=== PATIENT | male | born 1965 | race Caucasian/White ===

== ENCOUNTER 2017-09-06 09:23 | Emergency (ER) | payer OTHER ==
[2017-09-06 09:30] VITALS: BP 139/79; PULSE 74; RESP 18; TEMP 98.1; O2SAT 97
--- NOTE | 2017-09-06 09:49 | C.PDOC ---
History Of Present Illness 52 yo male, presents for evaluation of left 5th digit pain x 3 days after patient accidentally forced dorsiflexed his left 5th digit. He denies any othe rinjury or trauma, weakness, numbness or tingling to his left hand. No other complaint.s Time Seen by Provider: 09/06/17 09:29 Chief Complaint (Nursing): Finger,Hand,&Wrist History Per: Patient History/Exam Limitations: no limitations Onset/Duration Of Symptoms: Days (3) Current Symptoms Are (Timing): Still Present Quality: "Pain" Additional History Per: Patient Past Medical History Reviewed: Historical Data, Nursing Documentation, Vital Signs Vital Signs: Last Vital Signs Temp 98.1 F 09/06/17 09:28 Pulse 74 09/06/17 09:28 Resp 18 09/06/17 09:28 BP 139/79 09/06/17 09:28 Pulse Ox 97 09/06/17 09:49 - Medical History PMH: No Chronic Diseases Surgical History: No Surg Hx Family History: States: No Known Family Hx - Social History Hx Tobacco Use: No Hx Alcohol Use: Yes Hx Substance Use: No - Immunization History Hx Tetanus Toxoid Vaccination: Yes Hx Influenza Vaccination: No Hx Pneumococcal Vaccination: No Review Of Systems Except As Marked, All Systems Reviewed And Found Negative. Musculoskeletal: Positive for: Hand Pain (left 5th digit pain) Neurological: Negative for: Weakness, Numbness Physical Exam - Physical Exam Appears: Non-toxic Eye(s): bilateral: Normal Inspection Neck: Supple Chest: Symmetrical Cardiovascular: Rhythm Regular Respiratory: Normal Breath Sounds Extremity: Normal ROM (normal flexion/extension of left 5th digit), No Tenderness, No Deformity, No Swelling Neurological/Psych: Oriented x3 ED Course And Treatment O2 Sat by Pulse Oximetry: 97 (RA) Pulse Ox Interpretation: Normal - Other Rad L 5th finger X-Ray: Interpreted by Me (no fx/disloc L 5th finger) Progress Note: motrin/ice pack Reevaluation Time: 09:48 Reassessment Condition: Improved Medical Decision Making Medical Decision Making: sprain L 5th MCP Disposition Doctor Will See Patient In The: Office Counseled Patient/Family Regarding: Studies Performed, Diagnosis - Disposition Referrals: [facility] [Outside] [facility] [Outside] [facility] [Outside] Jonah Hopson MD [Staff Provider] - Disposition: HOME/ ROUTINE Disposition Time: 09:49 Condition: GOOD Additional Instructions: keep 5th finger maria esther-taped to 4th finger for about 1 week Motrin 400-600 mg every 6 hours as needed ice packs 1/2 hour per hour as needed. normal work routine Follow-up in our outpatient Clinic or w Dr Hopson as needed. Instructions: Finger Sprain (DC) Forms: [employer] ([place]) - Clinical Impression Clinical Impression: Finger sprain - Scribe Statement The provider has reviewed the documentation as recorded by the Scribe (Sue Dunn) Provider Attestation: All medical record entries made by the Scribe were at my direction and personally dictated by me. I have reviewed the chart and agree that the record accurately reflects my personal performance of the history, physical exam, medical decision making, and the department course for this patient. I have also personally directed, reviewed, and agree with the discharge instructions and disposition.
--- NOTE | 2017-09-06 12:02 | RAD ---
PROCEDURE: Left small finger radiographs. HISTORY: L MCP 5th ? fx/sprain COMPARISON: None. TECHNIQUE: AP radiograph of the left hand, as well as spot oblique and lateral images of left small finger were obtained. FINDINGS: LEFT SMALL FINGER: Left small finger normal, without fracture of focal lesion. Remainder of the left hand (as seen on the AP view) is grossly unremarkable. JOINTS: Normal. SOFT TISSUES: Normal. OTHER FINDINGS: None. IMPRESSION: Normal left small finger radiographs. Concordant results with the preliminary interpretation rendered by the emergency department physician procedure.
== END 2017-09-06 09:57 | disposition home or self-care (01) ==
LOC: C.ER 09:23
DX: S63.617A Unspecified sprain of left little finger, initial encounter (principal); X58.XXXA Exposure to other specified factors, initial encounter